=== PATIENT | female | born 1975 | race Caucasian/White ===

== ENCOUNTER 2016-11-16 15:27 | Emergency (ER) | payer BC, OTHER ==
[2016-11-16] VITALS (8 sets, daily range): BP systolic 103–150; BP diastolic 62–95
[~2016-11-16] VITALS: Ht 160 cm; Wt 72.6 kg
[~2016-11-16 15:27] MED LIST: IBUPROFEN400 MG ORAL; NKM; NORCO 5-325 TA1 EACH ORAL; PHENERGAN25 M1 ORAL; PROZAC10 MG ORAL; VALIUM5 MG ORAL; ZOFRAN ODT4 MG ORAL
[2016-11-16] MEDS ORDERED: Morphine Sulfate 4mg/ml Inj IVP ONE (15:45)
--- NOTE | 2016-11-16 16:47 | Diagnostic Imaging Report ---
Indications:PAIN Technique: Three or 4 views of the left elbow Comparison: None Findings:There is posterior dislocation by one bone width of the ulna and radius. There is a joint effusion. Small ossific densities adjacent to the olecranon may reflect also fracture fragments. Impression:Positive for posterior dislocation of the elbow, with likely associated avulsion fracture
[2016-11-16] MEDS ORDERED: Propofol 200mg/20ml IV ONE ×2 (17:05→19:45)
[2016-11-16] MEDS ORDERED: IBUPROFEN600 MG ORAL (17:43)
[2016-11-16] MEDS ORDERED: NORCO 5-325 TA1 EACH ORAL (17:43)
--- NOTE | 2016-11-16 21:59 | Emergency Room Report ---
History of Present Illness General Chief Complaint: Upper Extremity Injury Source: Patient Present Illness HPI 41-year-old female presents ED complaining of left elbow pain. Per EMS patient had full in her closet at home and landed on her left elbow. EMS notes deformity to left elbow. Patient states she felt a pop. Pain is throbbing, 10 out of 10, nonradiating. Unable to move the elbow. Denies any other injuries. No other aggravating or leading factors. Denies any other associated symptoms Allergies: Coded Allergies: NO KNOWN ALLERGIES (Unverified Allergy, Unknown, 02/27/15) Patient History Past Medical History: psych hx Past Surgical History: none Pertinent Family History: none Social History: Denies: smoking, alcohol use, drug use Now: No Immunizations: UTD Reviewed Nursing Documentation: PMH: Agreed, PSxH: Agreed Nursing Documentation-PMH Past Medical History: No History, Except For Hx Cardiac Problems: No Hx Cancer: No Hx Gastrointestinal Problems: No History Of Psychiatric Problem: Yes - DEPRESSION Hx Neurological Problems: No Review of Systems All Other Systems: negative except mentioned in HPI Physical Exam Vital Signs Date Time Temp Pulse Resp B/P (MAP) Pulse Ox O2 Delivery O2 Flow Rate FiO2 11/16/16 15:18 90 18 118/78 99 Room Air 11/16/16 15:30 98.0 Sp02 EP Interpretation: reviewed, normal General Appearance: alert, GCS 15, non-toxic, mild distress Head: normocephalic Eyes: bilateral eye normal inspection, bilateral eye PERRL ENT: normal ENT inspection Neck: normal inspection Respiratory: normal inspection Cardiovascular #1: normal inspection Gastrointestinal: normal inspection Rectal: deferred Genitourinary: no CVA tenderness Musculoskeletal: decreased range of motion, tender - L elbow Neurologic: alert, oriented x3, responsive, motor strength/tone normal, sensory intact, speech normal Psychiatric: judgement/insight normal, memory normal, mood/affect normal, no suicidal/homicidal ideation Skin: normal inspection Lymphatic: normal inspection Procedures Splinting Splinting : Consent: Verbal Pre-Made Type: shoulder sling Pre-Proc Neuro Vasc Exam: normal Post-Proc Neuro Vasc Exam: normal Patient Tolerated: Well Complications: None Joint Reduction Joint Reduction : Consent: Written Joint Reduction Site: other - L elbow Procedural Sedation: Yes Reduction Attempts: One Pre-Procedure NV Exam: Yes Post-Procedure NV Exam: Yes Post Joint Reduction Film: joint reduced Patient Tolerated: Well Complications: None Procedural Sedation Consent: Written Pre-Sedation Assessment: Eval. Immed. Prior to Sed, Pre-proc Edu. done, Plan for Sedation Discuss Airway Assessment (Malampati): I Heart: normal Lungs: normal Abdomen: normal Extremities: normal Procedures/Plans: Closed Reduction Plan for Moderate Sedation: Propofol - 40mg at 1710, 30mg at 1711, 30mg at 1713 ASA Score: I Start Time: 17:10 End Time: 17:18 Total Time: 0008 Communication: No Apparent Limitation Mental Status: Awake Respiration: Unlabored Skin Condition: WNL Abdomen: WNL Nausea: NO Vomiting: NO Medical Decision Making Diagnostic Impression: Primary Impression: Elbow dislocation Qualified Codes: S53.105A - Unspecified dislocation of left ulnohumeral joint , initial encounter ER Course Hospital Course 41-year-old female presents to ED complaining of left elbow pain status post fall Differential diagnoses include: Fracture, dislocation, sprain, contusion Clinical course Patient placed on stretcher. After initial history and physical I ordered pain medications and x-rays of L elbow xray shows posterior dislocation Procedural sedation performed using propofol. Respiratory therapist at bedside. Patient stable vitals on environmental science instructor. elbow reduced without complication. Placed in shoulder sling. Repeat elbow x-ray shows adequate reduction. Patient states she feels better. Diagnosis -elbow dislocation Stable and discharged to home with prescription for Motrin, [place]. Given referral to orthopedics. Followup with PMD. Return to ED if symptoms recur or worsen Other X-Ray Diagnostic Results Other X-Ray Diagnostic Results : X-Ray ordered: L elbow # of Views/Limited Vs Complete: 3 View Indication: Pain EP Interpretation: Yes Interpretation: no soft tissue swelling, no fractures, other - posterior dislocation Impression: No acute disease Electronically Signed by: Electronically signed by Prashanth Zamora MD Last Vital Signs Date Time Temp Pulse Resp B/P (MAP) Pulse Ox O2 Delivery O2 Flow Rate FiO2 11/16/16 18:30 97.5 97 17 131/95 100 Room Air Status: improved Disposition: HOME, SELF-CARE Condition: Stable Scripts Hydrocodone Bit/Acetaminophen 5-325* (NORCO 5-325*) 1 Each Tablet 1 TAB ORAL Q6H Y for For Pain, #10 TAB 0 Refills Prov: PRASAHNTH ZAMORA M.D. 11/16/16 Ibuprofen* (MOTRIN*) 600 Mg Tablet 600 MG ORAL Q8H Y for For Pain, #30 TAB 0 Refills Prov: PRASHANTH ZAMORA M.D. 11/16/16 Referrals: [facility]ARC[facility] W[facility],REFERRING (PCP) Patient Instructions: Elbow Dislocation, [id number] PRASHANTH ZAMORA M.D. Nov 16, 2016 21:59
--- NOTE | 2016-11-17 10:02 | Diagnostic Imaging Report ---
Indication: PAIN, status post reduction of elbow dislocation Technique: Single lateral view of the left elbow Comparison: One hour earlier Findings: Interim apparent reduction of previously demonstrated left elbow dislocation. Previously demonstrated osseous fragments are not currently visualized, possibly obscured by the overlying bone Impression: Apparent successful reduction of previously demonstrated elbow dislocation
== END 2016-11-16 18:30 | disposition home or self-care (01) ==
LOC: EDBD 15:27 → EMR 17:41
DX: S53.125A Posterior dislocation of left ulnohumeral joint, initial encounter (principal); X58.XXXA Exposure to other specified factors, initial encounter; Y93.9 Activity, unspecified; Y99.9 Unspecified external cause status; F32.9 Major depressive disorder, single episode, unspecified
CPT/HCPCS: 24600; 73070; 96374; 96375; 99284; J2270; J2704; Z7502